=== PATIENT | female | born 1960 | race Caucasian/White ===

== ENCOUNTER 2022-01-27 15:12 | Emergency (ER) | payer MEDICAID ==
[~2022-01-27] VITALS: Ht 152.4 cm; Wt 80.0 kg
[2022-01-27] MEDS ORDERED: CYCLOBENZAPRINE 10MG TABLET PO ONE (17:15)
[2022-01-27] MEDS ORDERED: IBUPROFEN 600MG TABLET PO ONE (17:15)
[2022-01-27 17:31] VITALS: BP 134/75
[2022-01-27] MEDS ORDERED: IBUP-1523 MT (19:08)
[2022-01-27] MEDS ORDERED: METH-653 MT (19:18)
== END 2022-01-27 19:26 | disposition home or self-care (01) ==
LOC: ER 15:12
DX: M72.2 Plantar fascial fibromatosis (principal)
CPT/HCPCS: 73630; 99283

== ENCOUNTER 2023-02-21 10:36 | Emergency (ER) | payer MEDICAID ==
[~2023-02-21] VITALS: Ht 162.6 cm; Wt 82.0 kg
[~2023-02-21 10:36] MED LIST: IBUP-1523 MT; METH-653 MT
[2023-02-21 10:44] VITALS: O2SAT 100
[2023-02-21] MEDS ORDERED: IBUPROFEN 600MG TABLET PO ONE (12:00)
[2023-02-21] MEDS ORDERED: NAPR-681 PO (13:20)
[2023-02-21] MEDS ORDERED: TRAM50TA3 MT (13:20)
[2023-02-21 14:15] VITALS: BP 124/69; PULSE 66; RESP 18; TEMP 98.7
== END 2023-02-21 14:16 | disposition home or self-care (01) ==
LOC: ER 10:36
DX: S83.91XA Sprain of unspecified site of right knee, initial encounter (principal); M25.561 Pain in right knee; Z98.890 Other specified postprocedural states; W18.39XA Other fall on same level, initial encounter; Y93.89 Activity, other specified; Y92.89 Other specified places as the place of occurrence of the external cause; Y99.8 Other external cause status
CPT/HCPCS: 73562; 99283